=== PATIENT | female | born 1985 | race Caucasian/White ===

== ENCOUNTER 2016-12-01 15:47 | Emergency (ER) | payer OTHER ==
[2016-12-01 16:04] VITALS: BP 116/78
[2016-12-01 16:25] LABS: BILIRUBIN,URINE NEGATIVE (NEGATIVE)
[2016-12-01 16:27] LABS: HCG UR QUAL NEGATIVE; UR CULTURE IF IND NOT INDICATED
[2016-12-01] MEDS ORDERED: PHENAZOPYRIDINE 100 MG TABLET PO STA (18:20)
--- NOTE | 2016-12-01 18:27 | ED Physician Documentation ---
History of Present Illness - Stated complaint Stated Complaint: FEM - Chief complaint Chief Complaint: UTI - Additonal information Additional information: hx from pt 31 f dysuria freq bladder and flank pain no fever no [place] LMP one yr ago - cause not known but she denies preg, some mild vag spotting, no vag dc or concern for pelvic infection Review of Systems Constitutional: denies: Fever, Chills GI: reports: Abdominal Pain (suprapubic). denies: Nausea, Vomiting : reports: Dysuria, Frequency, Vaginal bleeding (spotting). denies: Discharge , Now EGA (denies) Musculoskeletal: reports: Back pain PD PAST MEDICAL HISTORY - Past Medical History Cardiovascular: None Respiratory: None Neuro: None Endocrine/Autoimmune: Type 1 diabetes GI: None [employer] COUNSELOR: None : None HEENT: None Psych: None Musculoskeletal: None Derm: None - Past Surgical History Past Surgical History: Yes Ortho: Arthroscopic surgery /V[employer] COUNSELOR: section - Present Medications Home Medications: Ambulatory Orders Medication Instructions Recorded Confirmed Benzonatate [Tessalon Per[place]] 100 mg PO BID PRN #30 capsule 02/23/14 Insulin Glargine [Lantus] 20 units SQ ACHS 02/23/14 12/01/16 Insulin Regular Human [NovoLIN R] 1 units SQ ACHS 02/23/14 12/01/16 Cephalexin [Keflex] 500 mg PO Q6H #28 capsule 12/01/16 Phenazopyridine [Pyridium] 100 mg PO Q8H PRN #9 tablet 12/01/16 - Allergies Allergies/Adverse Reactions: Allergies Allergy/AdvReac Type Severity Reaction Status Date / Time No Known Drug Allergies Allergy Verified 12/01/16 16:04 - Social History Does the pt smoke?: No Smoking Status: Never smoker Does the pt drink ETOH?: No Does the pt have substance abuse?: No - Immunizations Immunizations are current?: Yes - POLST Patient has POLST: No PD ED PE NORMAL - Vitals Vital signs reviewed: Yes - Cardiac Cardiac: RRR - Respiratory Respiratory: No respiratory distress, Clear bilaterally - Abdomen Abdomen: Soft, Other (mild TTP suprapubic, no rebound or gaurding) - Back Back: No CVA TTP - Neuro Neuro: Alert and oriented X 3 Results - Vitals Vitals: Vital Signs - 24 hr 12/01/16 16:03 Temperature 36.3 C L Heart Rate 68 Respiratory 14 Rate Blood Pressure 116/78 O2 Saturation 100 Oxygen O2 Source Room air - Labs Labs: Laboratory Tests 12/01/16 12/01/16 12/01/16 16:15 16:15 18:10 POC Whole Bld Glucose 167 H Urine Color YELLOW Urine Clarity CLEAR Urine pH 6.0 Ur Specific [place] 1.020 1.020 Urine Protein NEGATIVE Urine Glucose (UA) >=1000 H Urine Ketones NEGATIVE Urine Occult Blood TRACE-INTA Urine Nitrite NEGATIVE Urine Bilirubin NEGATIVE Urine Urobilinogen 0.2 (NORMAL) Ur Leukocyte Esterase NEGATIVE Ur Microscopic Review Cancelled Urine Culture Comments NOT INDICATED Urine HCG, Qual NEGATIVE PD MEDICAL DECISION MAKING - ED course ED course: UA was done and neg except for glucose, micro was ordered but not done I called lab to ask for a micro given classic sx of UTI and since micro etc will be a while and pt has already been here 2+ hr, will tx for UTI now and have pt call me tomorrow for micro results, also added on GC chlamydia to urine sample, no vag dc so think low risk for STD but if dysuria and micro is neg that would be the next step given some flank pain though no CVA TTP and diabetic will tx for 1 wk not 3 days Departure - Departure Disposition: 01 Home, Self Care Clinical Impression: Dysuria Condition: Good Instructions: ED Dysuria Uncertain Cause Follow-Up: Kenn Naik DO [Primary Care Provider] - Prescriptions: Cephalexin [Keflex] 500 mg PO Q6H #28 capsule Phenazopyridine [Pyridium] 100 mg PO Q8H PRN #9 tablet PRN Reason: painful urination Comments: The initial urine test was negative (except for glucose in your urine) The microscopic testing has been delayed. Given that you have classic symptoms for a UTI I think it best to treat you with antibiotics as well as the pyridium You can call me in the ER tomorrow any time after 730 to get the rest of the urine results. We will call you if any of the cultures indicate a need to change treatment plans
[2016-12-01] MEDS ORDERED: PHENAZOPYRIDINE 100 MG TABLET PO ONE (18:33)
== END 2016-12-01 18:49 | disposition home or self-care (01) ==
LOC: ED 15:47
DX: R30.0 Dysuria (principal); E10.9 Type 1 diabetes mellitus without complications; Z79.4 Long term (current) use of insulin
CPT/HCPCS: 81001; 81025; 87491; 87591; 99282; 99283; A9270; 81003; 87086